=== PATIENT | female | born 1975 | race Hispanic/Latino ===

== ENCOUNTER 2024-11-15 05:35 | Day surgery (SDC) | payer OTHER, BC ==
[2024-11-08 16:32] VITALS: BP 124/78
[~2024-11-15] VITALS: Ht 160 cm; Wt 75.9 kg
[~2024-11-15 05:35] MED LIST: CALCIUM500 MG PO; KEFLEX500 MG PO; LACTATED RINGER'S 1,000 ML IV SCH; PRENA1 PLUS CO1 EACH PO; TUMS200 MG PO
[2024-11-15 05:58] VITALS: BP 132/86
[2024-11-15] MEDS ORDERED: CEPHALEXIN500 MG PO (06:00)
[2024-11-15] MEDS ORDERED: LIDOCAINE HCL 2% 20 ML MDV ONE (06:25)
[2024-11-15] MEDS ORDERED: Ropivacaine HCl 0.5% 30 ML VIAL ONE (06:25)
[2024-11-15] MEDS ORDERED: DEXAMETHASONE SOD PHOS 4 MG/ML VIAL ONE (06:25)
[2024-11-15] MEDS ORDERED: fentaNYL citrate 100 MCG/2 ML VIAL ONE (06:50)
[2024-11-15] MEDS ORDERED: MIDAZOLAM HCL 2 MG/2 ML VIAL ONE (06:50)
[2024-11-15] MEDS ORDERED: IBLOOD GLUCOSE TEST STRIP 1 EA TEST VI PRN (07:00)
[2024-11-15] MEDS ORDERED: LIDOCAINE HCL 1% 5 ML SDV INJ ONE (07:00)
[2024-11-15] MEDS ORDERED: CEFAZOLIN SODIUM 1 GM/10 ML SYR IV SCH (07:00)
[2024-11-15] MEDS ORDERED: propofoL 200 MG/20 ML VIAL ONE ×2 (07:07→07:32)
[2024-11-15] MEDS ORDERED: LIDOCAINE HCL 2% 5 ML SDV ONE (07:07)
[2024-11-15] MEDS ORDERED: NALOXONE HCL 0.4 MG SYR IV PRN (09:15)
[2024-11-15] MEDS ORDERED: ondansetron HCL 4 MG/2 ML VIAL IV PRN (09:15)
[2024-11-15] MEDS ORDERED: fentaNYL citrate 50 MCG/ML SDV IV PRN (09:15)
[2024-11-15] MEDS ORDERED: HYDROmorphone HCL 1 MG/ML SYR IV PRN (09:15)
[2024-11-15 10:23] VITALS: BP 121/75
--- NOTE | 2024-11-15 10:34 | NUR ---
11/15/24 Peter4 Maria Fernanda Childers Ashok 0844- PT PRESENTS TO PACU, SEMI HUFFMAN POSITION. OPA IN PLACE, BREATHING EVEN AND NON LABORED, ON ROOM AIR. NON REACTIVE AT THIS TIME, LR INFUSING TO RFA IV. ABD SOFT, NON DISTENDED. DRESSING TO LEFT FOOT, CDI, CAP REFILL NORMAL, EVELATED ON PILLOW AND ICE PLACED. 0848- PT WAKES ON OWN, EYES OPENING, OPA REMOVED, REOIENTED TO TIME AND PLACE. FALLS BACK TO SLEEP. 0855- XRAY AT BEDSIDE, IMAGES REVIEWED BY DR LAW. 0900- PT PLACED ON BED GUSTAFSON, VERY DROWSY, UNMEASURED VOID. PT FALLS BACK TO SLEEP. 0915- PT AWAKE OFF AND ON, WAKES EASILY TO VERBAL STIMULI. DENIES PAIN AND NAUSEA. 0920- HEAD OF BED ELEVATED, ICE WATER PROVIDED AND TOLERATING WELL. NO DIZZINESS. 0932- PT UP TO SIDE OF BED, TOLERATING WELL. NO DIZZINES, NAUSEA OR PAIN. PT TO GET DRESSED. 0940- POST OP BOOT PLACED TO LEFT FOOT, D/C INSTRUCTIONS GONE OVER WITH PT, VERBALIZED UNDERSTANDING. SALINE LOCK REMOVED, TIP INTACT, DRESSING APPLIED. PT TRANSFERRED TO WHEELCHAIR WITHOUT DIFFICULTY, DROWSY BUT ALERT AND ORIENTED. PT TAKEN OUT TO FAMILY CAR WITH ALL BELONGINGS.
--- NOTE | 2024-11-17 06:16 | OR ---
[facility] [address], [place] [address] Signed DATE OF OPERATION: SURGEON: Jesse Castro DPM PREOPERATIVE DIAGNOSIS: Hallux valgus, left foot. POSTOPERATIVE DIAGNOSIS: Hallux valgus, left foot. FLEXBOARD OPERATOR SURGEON: Marquis Mead DPM. ANESTHESIA: IV general with local block, left foot. CUSTOMER OPERATIONS SPECIALIST: Larry. SPECIMEN TO PATHOLOGY: None. PROCEDURE: Bunionectomy with double osteotomy, left foot. DESCRIPTION OF PROCEDURE: The patient was brought to the operating room and placed on the table in the supine position. Anesthesia Department administered IV sedation after which a local block was given to the left foot using a total of 8 mL 1:1 mixture, 2% lidocaine plain and 0.5% ropivacaine plain. The left leg and foot was then prepped and draped in the usual sterile manner and an Esmarch was used for hemostasis. Attention was initially directed to the dorsal/medial aspect left first MTPJ where a linear longitudinal incision was made approximately 7 cm in length and 1 cm medial to the extensor hallucis longus tendon. The incision was initially full-thickness through the dermis then deepened through subcutaneous tissue using careful dissection and cautery as necessary for hemostasis. Once at the level of deep fascia and joint capsule soft tissues were reflected medially to expose the medial bony prominence at the first metatarsal head, which was then resected using power instrumentation, removing 2-3 mm of bone. At this time, attention was directed to the first intermetatarsal space where a lateral release was performed. Electronically Signed By: JESSE CASTRO DPM 11/17/24 0616 PATIENT NAME: ANATOLY WALSH OPERATIVE REPORT DATE OF : 79 REPORT #: [id number] PHYSICIAN: JESSE CASTRO DPM PCP: CARRIE OSMAN PA-C REPORT IS CONFIDENTIAL AND NOT TO BE RELEASED WITHOUT AUTHORIZATION [facility] [address], [place] [address] Signed Attention then directed to the medial first metatarsal head where a chevron osteotomy was made transversely through the first metatarsal head, this is a long dorsal arm osteotomy. The incision was extended proximally about 1cm to complete the osteotomy. The first metatarsal head then laterally transposed approximately 6-7 mm then impacted on the metatarsal and temporarily secured with K-wires. The position and alignment were then checked with intraoperative fluoroscopy and noted to be adequate. Then secured with two 3.5 mm screws. At this time the position and alignment reassessed for the hallux. The hallux was noted to have a curvature in a valgus direction. Therefore, a proximal phalanx osteotomy was deemed necessary to provide adequate valgus correction. The incision was extended distally about 0.5-1 cm for the proximal phalanx osteotomy. The osteotomy performed within the base of the proximal phalanx left hallux, removing a small wedge of bone medially. 2-3 mm of bone was removed and the osteotomy site secured with a bone staple. The correction with the hallux osteotomy appeared to provide good alignment to the hallux, then the surgical site was irrigated with copious amounts of normal saline. Deep soft tissues closed using 3-0 Vicryl. Subcutaneous tissue closed using 4-0 Vicryl and skin closed with skin tamiko. A postoperative injection then given using 6 mL of a 9:1 mixture, 0.5% ropivacaine plain and dexamethasone phosphate 4 mg/mL. Dressings applied using Adaptic, Betadine-soaked gauze, dry gauze, Flexicon, and Coban. The dressings were used to splint the position to the hallux to maintain alignment. INTRAOPERATIVE COMPLICATIONS: None. ESTIMATED BLOOD LOSS: Less than 5 mL. The patient tolerated the procedure and the anesthesia well and left the operating room with vital signs stable and vascular status intact to the left foot as evidenced by hyperemia with removal of the Esmarch. Jesse Castro DPM Electronically Signed By: JESSE CASTRO DPM 11/17/24 0616 PATIENT NAME: ANATOLY WALSH OPERATIVE REPORT DATE OF : 79 REPORT #: [id number] PHYSICIAN: JESSE CASTRO DPM PCP: CARRIE OSMAN PA-C REPORT IS CONFIDENTIAL AND NOT TO BE RELEASED WITHOUT AUTHORIZATION [facility] [address] [place] [address] [place], [place] [address] Signed IRMA/MAURICIO /[id number] Copies: ~ Electronically Signed By: JESSE CASTRO DPM 11/17/24 0616 PATIENT NAME: HERNANDEZ LUCASANATOLY OPERATIVE REPORT DATE OF : 79 REPORT #: [id number] PHYSICIAN: JESSE CASTRO DPM PCP: CARRIE OSMAN PA-C REPORT IS CONFIDENTIAL AND NOT TO BE RELEASED WITHOUT AUTHORIZATION
== END 2024-11-15 09:40 | disposition home or self-care (01) ==
LOC: DS 05:35
PROVIDERS: ATTEND Podiatrist Foot Surgery
PROC: 0QSP04Z Reposition Left Metatarsal with Internal Fixation Device, Open Approach (ICD-10-PCS; principal; 2024-11-15 07:00)
DX: M20.12 Hallux valgus (acquired), left foot (principal)
CPT/HCPCS: 01480; 73630; C1713; J0690; J1100; J2003; J2250; J2704; J2795; J3010

== ENCOUNTER 2025-01-08 11:30 | Emergency (ER) | payer OTHER, BC ==
[~2025-01-08] VITALS: Ht 160 cm; Wt 78.3 kg
[~2025-01-08 11:30] MED LIST changes: +CEPHALEXIN500 MG PO; -LACTATED RINGER'S 1,000 ML IV SCH
[2025-01-08] MEDS ORDERED: [UNRECOGNIZED DRUG - OTHER] PO (11:42)
[2025-01-08] MEDS ORDERED: IBU600 MG PO (13:00)
[2025-01-08] MEDS ORDERED: BENADRYL25 MG PO (13:00)
[2025-01-08] MEDS ORDERED: PENICILLIN V P500 MG PO (13:00)
[2025-01-08 13:29] VITALS: BP 123/80
[2025-01-08 13:36] LABS: BLOOD/HGB, URINE MODERATE (Negative); KETONE, URINE TRACE (Negative); LEUK ESTERASE, URINE NEGATIVE (negative); NITRITE, URINE NEGATIVE (negative)
[2025-01-08 13:49] LABS: EPITHELIAL CELLS, URINE SQUAMOUS 2+ /lpf (0-1+); REFLEX CULTURE, URINE No (No)
[2025-01-08 15:06] LABS: N. GONORRRHOEAE BY PCR NOT DETECTED (NOT DETECT)
[2025-01-10 09:10] LABS: HSV SUBTYPE SOURCE Not Provided (())
[2025-01-10 20:28] LABS: STREPTOCOCCUS (GROUP B) BY PCR Detected (()); STREPTOCOCCUS (GROUP B) SOURCE Vaginal (())
== END 2025-01-08 13:30 | disposition home or self-care (01) ==
LOC: ED 11:30
PROVIDERS: Emergency Medicine
DX: N90.60 Unspecified hypertrophy of vulva (principal); Z79.899 Other long term (current) drug therapy
CPT/HCPCS: 36415; 81001; 84703; 87070; 87205; 87491; 87529; 87653; 99283